=== PATIENT | female | born 1955 ===

== ENCOUNTER → 2018-03-23 19:08 | Outpatient (REF) | payer OTHER, SELFPAY ==
[2018-03-23 19:21] LABS: Add Manual Diff / Slide Review NO; Eosinophils Percent Auto 2.4 % (2-4); Hematocrit 44.7 % (36-46); Hemoglobin 15.1 g/dL (12.0-16.0); Mean Corpuscular HGB Conc 33.9 % (30-36); Mean Corpuscular Hemoglobin 31.8 PG (26-34); Monocytes Percent Auto 7.3 % (3-14); Neutrophils Absolute Auto 4900 /uL (3000-5900); Neutrophils Percent Auto 54.3 % (50-75); Platelet Count 296 X10^3/uL (150-400); Red Blood Cell Count 4.75 X10^6/uL (4.0-5.2); Red Cell Distribution Width 13.5 % (11.6-14.8)
[2018-03-23 19:29] LABS: Alanine Aminotransferase 9 IU/L (9-52); Albumin 4.5 g/dL (3.5-5.0); Albumin Globulin Ratio 1.7 (1.0-2.8); Alkaline Phosphatase 91 U/L (38-126); Aspartate Aminotransferase 57 IU/L (14-36); BUN Creatinine Ratio 31.7 (6-22); Bilirubin Total 0.5 mg/dL (0.2-1.3); Blood Urea Nitrogen 19 mg/dL (7-17); Calcium 9.1 mg/dL (8.4-10.2); Carbon Dioxide 25 mmol/L (22-32); Chloride 104 mmol/L (98-107); Cholesterol 198 mg/dL (140-199); Estimated Glomerular Filt Rate > 60.0 mL/min (>60); Globulin 2.7 g/dL (1.7-4.1); Glucose 103 mg/dL (80-110); HDL Cholesterol 50 mg/dL (40-60); LDL Cholesterol Calculated 107 mg/dL (<100); Potassium 4.1 mmol/L (3.4-5.1); Sodium 143 mmol/L (137-145); Total Protein 7.2 g/dL (6.3-8.2); Triglycerides 206 mg/dL (35-150)
[2018-03-23 19:32] LABS: HEMOLYSIS 60 (0-50)
[2018-03-23 19:43] LABS: Hemoglobin A1C% w Est Avg Glu 5.5 % (4.0-6.0)
== END ==
LOC: LAB 19:08
PROVIDERS: Visit Provider Nurse Practitioner Acute Care
DX: Z82.49 Family history of ischemic heart disease and other diseases of the circulatory system (principal)
CPT/HCPCS: 80053; 80061; 83036; 85025